=== PATIENT | female | born 2005 | race Two or more races ===

== ENCOUNTER 2024-04-15 03:59 | Emergency (ER) | payer OTHER ==
[~2024-04-15] VITALS: Ht 165.1 cm; Wt 56.7 kg
[2024-04-15] MEDS ORDERED: RINGERS SOLUTION,LACTATED 1,000 ML IV ONE (05:00)
[2024-04-15 07:10] LABS: INR 0.98; PARTIAL THROMBOPLASTIN TIME 28.3 SECONDS (22.0-34.0); PROTHROMBIN TIME 10.7 SECONDS (9.0-11.5)
[2024-04-15 07:22] LABS: HEMATOCRIT 33.6 % (36.0-45.00); HEMOGLOBIN 11.5 g/dL (12.0-15.00); MEAN CELL VOLUME 83.6 fL (80.00-100.00); MEAN CORPUSCULAR HEMOGLOBIN 28.5 pg (27.00-32.0); MEAN CORPUSCULAR HGB CONC 34.1 g/dl (32.0-36.0); PLATELET COUNT 325 K/uL (150-450); RED BLOOD COUNT 4.02 M/uL (4.00-6.00); RED CELL DISTRIBUTION WIDTH 14.1 % (11.5-14.5)
[2024-04-15 08:03] LABS: CALCIUM 8.6 mg/dL (8.5-10.1); CREATININE SERUM 0.43 mg/dL (0.55-1.02); GFR 187.2; POTASSIUM 4.24 mEq/L (3.5-5.1)
[2024-04-15 08:09] LABS: URINE APPEARANCE Clear; URINE BILIRRUBIN Negative (NEGATIVE); URINE BLOOD Negative; URINE COLOR Yellow; URINE GLUCOSE Negative (NEGATIVE); URINE KETONE Negative (NEGATIVE); URINE LEUKOCYTE Trace; URINE NITRATE Negative; URINE PROTEIN Negative (NEGATIVE); URINE UROBILINOGEN 0.2 E.U./dl
[2024-04-15 08:14] LABS: URINE BACTERIA 25.6 uL (0.0-1933); URINE EPITHELIAL CELLS 7.1 uL (0.0-38.8); URINE WBC 44.2 uL (0.0-23.2)
[2024-04-15 08:43] LABS: URINE RBC 1.6 uL (0.0-20.8)
[2024-04-15] MEDS ORDERED: CEPHALEXIN500 M1 PO (09:05)
== END 2024-04-15 09:18 | disposition home or self-care (01) ==
LOC: ER 03:59
PROVIDERS: General Practice
DX: O23.42 Unspecified infection of urinary tract in pregnancy, second trimester (principal); N39.0 Urinary tract infection, site not specified; Z3A.22 22 weeks gestation of pregnancy; S30.0XXA Contusion of lower back and pelvis, initial encounter; X83.8XXA Intentional self-harm by other specified means, initial encounter; Y93.89 Activity, other specified; Y92.018 Other place in single-family (private) house as the place of occurrence of the external cause; Y99.9 Unspecified external cause status; Z91.013 Allergy to seafood